=== PATIENT | male | born 1985 | race Caucasian/White ===

== ENCOUNTER 2021-01-29 18:08 | Emergency (ER) | payer OTHER ==
[~2021-01-29] VITALS: Ht 172.7 cm; Wt 94.8 kg
[2021-01-29 18:21] VITALS: BP 143/90
--- NOTE | 2021-01-29 18:30 | NUR ---
PT BIBA TO BED 9
[2021-01-29] MEDS ORDERED: ACETAMINOPHEN 325 MG TAB PO ONE (19:05)
[2021-01-29] MEDS ORDERED: IBUPROFEN 400 MG TAB PO ONE (19:05)
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
--- NOTE | 2021-01-29 19:21 | NUR ---
PT TAKEN TO RAD VIA [facility]
--- NOTE | 2021-01-29 19:44 | NUR ---
PT BACK FROM RAD
[2021-01-29] MEDS ORDERED: BACITRACIN OINT 500 UNITS/GM PKT TP ONE (20:25)
[2021-01-29] MEDS ORDERED: NAPR-1559 PO (20:27)
[2021-01-29 20:43] VITALS: BP 127/87
--- NOTE | 2021-01-29 20:46 | NUR ---
Patient discharged with v/s stable. Written and verbal after care instructions given and explained. Patient verbalized understanding. Ambulatory with steady gait. All questions addressed prior to discharge. Advised to follow up with PMD.
== END 2021-01-29 20:43 | disposition home or self-care (01) ==
LOC: MED 18:08
DX: S40.212A Abrasion of left shoulder, initial encounter (principal); M54.2 Cervicalgia; M54.50 Low back pain, unspecified; V98.8XXA Other specified transport accidents, initial encounter; Y93.89 Activity, other specified; Y92.89 Other specified places as the place of occurrence of the external cause; Y99.8 Other external cause status
CPT/HCPCS: 72040; 72080; 73060; 99284